=== PATIENT | female | born 1990 | race Two or more races ===

== ENCOUNTER 2016-09-11 22:23 | Emergency (ER) | payer MEDICAID, OTHER ==
[~2016-09-11] VITALS: Ht 165.1 cm; Wt 68.0 kg
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
--- NOTE | 2016-09-11 22:53 | NUR ---
SHANNAN HUSTON AT BEDSIDE FOR EVAL.
[2016-09-11] MEDS ORDERED: LORAZEPAM 1 MG TABLET PO ONE (23:00)
[2016-09-11] MEDS ORDERED: LORAZEPAM 1 MG TABLET ONE (23:05)
--- NOTE | 2016-09-11 23:12 | NUR ---
cxr at bedside.
--- NOTE | 2016-09-12 00:10 | NUR ---
IV removed. Catheter intact and site benign. Pressure and 4x4 applied to site. No bleeding noted.
--- NOTE | 2016-09-12 00:14 | NUR ---
Patient discharged to home in stable condition. Written and verbal after care instructions given. Patient verbalizes understanding of instruction. Instructed not to drive. Patient ambulating with steady gait, accompanied by . No further complaints.
[2016-09-12 00:19] VITALS: BP 107/54
== END 2016-09-12 00:21 | disposition home or self-care (01) ==
LOC: ER 22:24
DX: F41.0 Panic disorder [episodic paroxysmal anxiety] (principal)
CPT/HCPCS: 71010-TC; A4606; Z7610